=== PATIENT | female | born 1965 | race American Indian/Alaskan Native ===

== ENCOUNTER 2018-03-09 06:33 | Day surgery (SDC) | payer MEDICARE ==
[~2018-03-09 06:33] MED LIST: NACL 0.9% 1000 ML 1,000 ML IV SCH
[2018-03-09] MEDS ORDERED: HURRICAINE ONE 20% TOPICAL SPRAY MM (08:36)
[2018-03-09] MEDS ORDERED: WATER FOR IRRIG STERILE IR ONE ×2 (08:38→15:59)
[2018-03-09] MEDS ORDERED: DIPRIVAN 10 MG/ML IV ONE (08:43)
--- NOTE | 2018-03-09 08:57 | Discharge Summary ---
Providers - Providers Attending physician: MALA HA Primary care physician: ACTIVITY SPECIALIST Hospitalization Procedures: EGD Hospital course: Pt presented to the endoscopy are for EGD. She tolerated the procedure well and was discharged home the same day. Disposition: DC-01 TO HOME OR SELFCARE Core Measure Documentation - Palliative Care Palliative Care/ Comfort Measures: Not Applicable - Core Measures Any of the following diagnoses?: none Exam - Physical Exam Narrative exam: no change from prior - Constitutional Vitals: Temp Pulse Resp BP Pulse Ox 98.7 F 96 H 16 146/85 99 03/09/18 08:20 03/09/18 08:20 03/09/18 08:20 03/09/18 08:20 03/09/18 08:20 Plan Follow up with: JUDY LOPES MD [Primary Care Provider] - 7 Days
--- NOTE | 2018-03-09 08:57 | Operative Report ---
Operative Report Operative Report: EGD Post bypass DATE 03/09/18 OPERATIVE REPORT - EGD PREOP DIAGNOSIS: gastric dyspepsia POSTOP DIAGNOSIS: Failed GJ anastomosis SURGERY: Upper endoscopy. SURGEON: Dr. Morales HAT AND CAP OPENER: Grace Cabral D.O TYPE OF ANESTHESIA: MAC. ESTIMATED BLOOD LOSS: None. COMPLICATIONS: None. SPECIMENS REMOVED: None. FINDINGS: 1. normal esophagus 2. gastric pouch - 80ml 3. gastrojejunal anastomosis is 40mm INDICATIONS:INDICATION FOR PROCEDURE: Patient is a 52-year-old F s/p gastric bypass [place] [address] Gonzalez. The patient is here today for evaluation for revisional surgery. The patient is here for a planned EGD for gastric dyspepsia. PROCEDURE DETAILS: After consent was reviewed, patient was taken back to the operating room where patient was placed in the left lateral decubitus position and a bite block was placed in the mouth. After a time-out was called, MAC anesthesia was initiated. I then passed the endoscope into the patients oropharynx, into the esophagus, visualized the entire esophagus, which was all within normal limits. I then visualized the gastric pouch which was normal and about 80ml in size. The gastrojejunal anastomosis was normal at about 40mm. The proximal portion of the champ limb was normal. I then desufflated the gastric pouch and removed the endoscope. Patient tolerated procedure well and was transferred to recovery room in good and stable condition
--- NOTE | 2018-03-09 09:13 | Anesthesia Consultation ---
Anesthesia Consult and Med Hx Date of service: 03/09/18 - Airway Anesthetic Teeth Evaluation: Partials (upper) ROM Head & Neck: Adequate Mental/Hyoid Distance: Adequate Mallampati Class: Class I Intubation Access Assessment: Good - Pulmonary Exam CTA: Yes - Cardiac Exam Cardiac Exam: RRR - Pre-Operative Health Status ASA Pre-Surgery Classification: ASA3 Proposed Anesthetic Plan: MAC - Pre-Anesthesia Comment Pre-Anesthesia Comments: spinal cord injury-right side weak. walker. BLE edema - Pulmonary Hx Sleep Apnea: Yes - Cardiovascular System Hx Hypertension: Yes - Other Systems Hx Obesity: Yes
--- NOTE | 2018-03-09 09:14 | Anesthesia Day of Surgery ---
Anesthesia Day of Surgery - Day of Surgery Patient Examined: Yes Patient H&P Reviewed: Yes Patient is NPO: Yes
[2018-03-09 09:27] VITALS: BP 126/80
[2018-03-09] MEDS ORDERED: HURRICAINE ONE 20% TOPICAL SPRAY MM NR (11:00)
== END 2018-03-09 06:34 | disposition home or self-care (01) ==
LOC: GIO 06:33
PROVIDERS: ATTEND Specialist
DX: K91.89 Other postprocedural complications and disorders of digestive system (principal); I10 Essential (primary) hypertension; E66.01 Morbid (severe) obesity due to excess calories; G47.30 Sleep apnea, unspecified; F32.9 Major depressive disorder, single episode, unspecified; Z68.42 Body mass index [BMI] 45.0-49.9, adult; Z96.659 Presence of unspecified artificial knee joint; Z98.84 Bariatric surgery status
CPT/HCPCS: 43235; J2704; J7030

== ENCOUNTER 2018-11-30 09:06 | Inpatient (IN) | payer MEDICARE ==
--- NOTE | 2018-11-26 08:47 | Anesthesia Consultation ---
Anesthesia Consult and Med Hx Date of service: 11/26/18 - Airway Anesthetic Teeth Evaluation: Good ROM Head & Neck: Inadequate (severe restriction to extension) Mental/Hyoid Distance: Adequate Mallampati Class: Class I Intubation Access Assessment: Possibly Difficult (restricted extension, hx trach) - Pulmonary Exam CTA: Yes - Cardiac Exam Cardiac Exam: RRR - Pre-Operative Health Status ASA Pre-Surgery Classification: ASA3 Proposed Anesthetic Plan: General - Pulmonary Hx Smoking: No Hx Respiratory Symptoms: No Hx Sleep Apnea: No - Cardiovascular System Hx Hypertension: Yes Hx Heart Attack/AMI: No Hx Percutaneous Transluminal Coronary Angioplasty (PTCA): No Hx Cardia Arrhythmia: No - Central Nervous System Hx Neuromuscular Disorder: Yes (hx cervical spine injury s/p fusion; now mostly wheel chair bound) Hx Seizures: No CVA: No Hx Psychiatric Problems: Yes (depression) - Gastrointestinal Hx Gastroesophageal Reflux Disease: No - Endocrine 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 Normal ST and TTE. No NAUJA on sleep study. Patient suffered c-spine injury 15yrs ago and is now s/p C4-5 fusion and trach decannulation and is mostly wheelchair bound (stand and pivot only). She has severely restricted neck extension on exam. She reports having had anesthetics since then and has never been told she was difficult to intubate. She denies hx of awake FOI.
[~2018-11-30 09:06] MED LIST changes: +ANCEF/STERILE WATER 2 GM/20 ML 2 GM/20 ML SYRINGE IV NR; +FLAGYL 500 MG/100 ML 500 MG/100 ML BAG IV NR; +LACTATED RINGERS 1,000 ML IV SCH; +LOVENOX SUB-Q NR; -NACL 0.9% 1000 ML 1,000 ML IV SCH; +TRANSDERM-SCOP TD SCH
[2018-11-30] MEDS ORDERED: NORCO PO PRN (10:15)
[2018-11-30] MEDS ORDERED: APRESOLINE IV PRN (10:15)
[2018-11-30] MEDS ORDERED: REGLAN IV PRN (10:15)
[2018-11-30] MEDS ORDERED: ZOFRAN IV PRN (10:15)
[2018-11-30] MEDS ORDERED: MYLICON PO PRN (10:15)
[2018-11-30] MEDS ORDERED: MORPHINE IV PRN (10:15)
[2018-11-30 10:18] LABS: Bacteria,Urine 4+ /HPF (Negative); Bilirubin,Urine NEG (Negative); Blood,Urine LG (Negative); Color,Urine Yellow (Yellow); Hyaline Casts,Urine 3 /LPF; Mucus,Urine FEW /HPF
[2018-11-30] MEDS ORDERED: VERSED IV NR (11:00)
[2018-11-30] MEDS ORDERED: SUBLIMAZE IV PRN (11:13)
--- NOTE | 2018-11-30 11:14 | Anesthesia Day of Surgery ---
Anesthesia Day of Surgery - Day of Surgery Patient Examined: Yes Patient H&P Reviewed: Yes Patient is NPO: Yes
[2018-11-30] MEDS ORDERED: WATER FOR IRRIG STERILE IR ONE (12:38)
[2018-11-30] MEDS ORDERED: ZEMURON IV ONE (12:43)
[2018-11-30] MEDS ORDERED: XYLOCAINE MPF 2% ONE (12:43)
[2018-11-30] MEDS ORDERED: QUELICIN ONE (12:43)
[2018-11-30] MEDS ORDERED: SUBLIMAZE ONE (12:43)
[2018-11-30] MEDS ORDERED: DIPRIVAN 10 MG/ML IV ONE (12:44)
[2018-11-30] MEDS ORDERED: MARCAINE-EPI 0.5%-1:200,000 INFILTRATI ONE ×2 (12:59→14:07)
[2018-11-30] MEDS ORDERED: XYLOCAINE 1% 20 mL ONE (12:59)
[2018-11-30] MEDS ORDERED: XYLOCAINE 1% 20 mL INFILTRATI ONE (14:07)
[2018-11-30] MEDS ORDERED: NACL 0.9% IR ONE ×2 (14:08→15:08)
[2018-11-30] MEDS ORDERED: DILAUDID ONE (14:41)
[2018-11-30] MEDS ORDERED: ZOFRAN ONE (15:06)
[2018-11-30] MEDS ORDERED: ROBINUL ONE (15:07)
[2018-11-30] MEDS ORDERED: BLOXIVERZ ONE (15:07)
--- NOTE | 2018-11-30 16:40 | Operative Report ---
PREOPERATIVE DIAGNOSES: 1. Chronic epigastric abdominal pain, dyspepsia, reflux, failed gastrointestinal anastomosis with intragastric reflux. 2. 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 4. Intraoperative recognition of chronic cholecystitis and cholelithiasis. PROCEDURE: 1. Laparoscopic partial gastrectomy. 2. Revision of gastrojejunostomy. 3. Biliopancreatic limb lengthening. 4. Cholecystectomy. 5. Revision of gastrojejunostomy. SURGEON: Bennie Morales MD. BELT BUCKLE MAKER: Vinnie Bay. ANESTHESIA: General. OPERATIVE TECHNIQUE: The patient was placed on the operating table in the dorsal supine position and following satisfactory induction of general anesthesia, the abdomen was prepped using chlorhexidine and draped in a sterile fashion. Then, using a sharp skin knife, skin incision was made in the umbilicus and a Veress needle was placed and insufflation of CO2. After adequate insufflation of CO2 was accomplished inside the abdominal cavity, a 10 mm trocar was then placed for inspection of the intra-abdominal contents. Several other trocars were also placed to prepare for the above-mentioned operation. We identified the Srinivasan-en-Y limb placed it down to the area of this junction with the biliopancreatic limb and the common channel and the Srinivasan-en-Y limb was transected using a white linear load stapler. Following this, we went to the terminal ileum and ran the small bowel back 450 cm and then brought distal loop up 450 cm proximal to the ileocecal valve up to the level of the Srinivasan limb and a [id number] anastomosis was accomplished by making enterotomies in both sides with a hook electrocautery and then using a wide load stapling device. Enterotomies were then closed with a white load stapling device as well. We then lifted up to the surface to the level of liver and using a sharp scissor dissection as well as a hook electrocautery, the pouch was freed up from the underlying gastric remnant and other surrounding tissues. The LigaSure was also used in order to control any bleeding. The pouch was noted to be quite dilated and after we completely freed up the pouch, we performed an intraoperative endoscopy to size the pouch and to see if this could be the cause of her pain. The pouch size was so dilated and so large, there was no doubt that there were parietal cells left behind and the parietal cells were probably producing gastric acid that spilled on to unprotected small bowel at the gastrojejunostomy site. This was probably the portion of the patient's abdominal pain. We therefore proceeded to continue to perform dissection and the candy cane from the previous gastric bypass was noted to be quite long in length. We therefore took the small ____ to the candy cane down and then using a white load of a stapler, the excess small bowel was then resected and removed. The edge of the gastric pouch was appreciated. We then decided to do a partial gastrectomy to decrease the parietal cell mass load of the gastric pouch. This was accomplished using the linear cutter, stapling device with the blue load stapling. The staple line was then oversewn using a running suture of 0 PDS V-Loc. After the staple line was hemostatic, we then rescoped to make sure that we had adequate anastomosis without any evidence of enterogastric reflux. Prior to closure, we looked at the gallbladder and the gallbladder appeared to be diseased. We therefore consented from the patient's daughter that we could remove the gallbladder to avoid having to come back. The gallbladder was inflamed and had a large stone that we could palpate. We therefore looked up to gallbladder as we got consent from her daughter and this was verified by the regional director. The gallbladder was lifted up. The cystic duct was dissected free and the cystic duct and cystic artery were both clipped and divided. The gallbladder was then removed from the undersurface of the liver using the LigaSure device. After the gallbladder was completely freed, we then placed it into a bag and brought it out through the umbilical port. The abdominal cavity was irrigated out. The abdominal cavity was then desufflated and the fascial defect at the umbilicus was closed using interrupted simple sutures of #1 PDS and the skin was closed using interrupted subdermal sutures of 4-0 Monocryl. Steri-Strips were applied to the wound. The patient tolerated the procedure well and was sent to recovery room in satisfactory condition. JOB# [id number] LARRY/[facility]ISE
[2018-11-30] MEDS: TORADOL IV SCH ×2 (16:56→23:55)
[2018-11-30] MEDS: DILAUDID IV PRN (23:06)
[2018-12-01] MEDS: DILAUDID IV PRN ×2 (02:51→08:40)
[2018-12-01] MEDS: LACTATED RINGERS 1,000 ML IV SCH ×2 (02:58→11:39)
[2018-12-01] MEDS: TORADOL IV SCH ×2 (05:33→06:41)
[2018-12-01] MEDS: LOVENOX SUB-Q SCH ×2 (08:41→10:00)
--- NOTE | 2018-12-01 13:34 | Discharge Summary ---
Providers - Providers Date of Admission: 11/30/18 09:06 Date of discharge: 12/01/18 Attending physician: MALA HA Hospitalization Condition: Good Procedures: Lap Gj Revision Disposition: DC-01 TO HOME OR SELFCARE Core Measure Documentation - Palliative Care Palliative Care/ Comfort Measures: Not Applicable - Core Measures Any of the following diagnoses?: none Exam - Constitutional Vitals: Temp Pulse Resp BP Pulse Ox 98.4 F 107 H 18 105/58 96 12/01/18 12:16 12/01/18 12:16 12/01/18 12:16 12/01/18 12:16 12/01/18 12:16 General appearance: Present: no acute distress, well-nourished - EENT Eyes: Present: PERRL, EOM intact ENT: hearing intact, clear oral mucosa, dentition normal - Neck Neck: Present: supple, normal ROM - Respiratory Respiratory effort: normal Respiratory: right: CTA - Cardiovascular Rhythm: regular - Extremities Extremities: no ischemia, pulses intact, pulses symmetrical, No edema, normal temperature, normal color, Full ROM Peripheral Pulses: within normal limits - Abdominal General gastrointestinal: Present: soft, non-tender Female genitourinary: Present: normal - Rectal Rectal Exam: deferred - Integumentary Integumentary: Present: clear, warm, dry - Musculoskeletal Musculoskeletal: strength equal bilaterally - Psychiatric Psychiatric: appropriate mood/affect Plan Follow up with: ARNULFO HORN [Other] - 7 Days MALA HA MD [Staff Physician] - 14 Days
[2018-12-01 17:01] VITALS: BP 104/67
== END 2018-12-01 19:41 | disposition home or self-care (01) | DRG 327 ==
LOC: 3A 09:06 → 3B-SURG 16:24
PROVIDERS: ADMIT Specialist; ATTEND Specialist
PROC: 0FT44ZZ Resection of Gallbladder, Percutaneous Endoscopic Approach (ICD-10-PCS; principal; 2018-11-30)
PROC: 0D164ZB Bypass Stomach to Ileum, Percutaneous Endoscopic Approach (ICD-10-PCS; 2018-11-30)
PROC: 0DB64ZZ Excision of Stomach, Percutaneous Endoscopic Approach (ICD-10-PCS; 2018-11-30)
PROC: 0DB84ZZ Excision of Small Intestine, Percutaneous Endoscopic Approach (ICD-10-PCS; 2018-11-30)
DX: K95.89 Other complications of other bariatric procedure (principal); Z68.43 Body mass index [BMI] 50.0-59.9, adult; K80.10 Calculus of gallbladder with chronic cholecystitis without obstruction; Y84.8 Other medical procedures as the cause of abnormal reaction of the patient, or of later complication, without mention of misadventure at the time of the procedure; K30 Functional dyspepsia; I10 Essential (primary) hypertension; E78.00 Pure hypercholesterolemia, unspecified; R06.83 Snoring; E66.9 Obesity, unspecified; F32.9 Major depressive disorder, single episode, unspecified; Z96.659 Presence of unspecified artificial knee joint; Y92.098 Other place in other non-institutional residence as the place of occurrence of the external cause; Z80.3 Family history of malignant neoplasm of breast; Z82.3 Family history of stroke; Z82.61 Family history of arthritis; Z82.49 Family history of ischemic heart disease and other diseases of the circulatory system; Z98.1 Arthrodesis status
CPT/HCPCS: 81001; 88304; 88307; G0378; A4217; J0330; J0690; J1170; J1650; J1885; J2250; J2405; J2704; J2710; J2765; J3010; J7120